=== PATIENT | male | born 1960 | race Caucasian/White ===

== ENCOUNTER 2019-12-09 11:29 | Emergency (ER) | payer OTHER ==
[~2019-12-09] VITALS: Ht 170.2 cm; Wt 70.8 kg
[2019-12-09 12:09] VITALS: Ht 170.2 cm; Wt 70.8 kg
[2019-12-09 13:11] VITALS: BP 141/64
== END 2019-12-09 13:11 | disposition home or self-care (01) ==
LOC: ED 11:29
DX: M54.5 Low back pain (principal); G89.29 Other chronic pain; I10 Essential (primary) hypertension
CPT/HCPCS: J1885